=== PATIENT | male | born 1960 | race Caucasian/White ===

== ENCOUNTER 2023-12-13 13:40 | Day surgery (SDC) | payer BC ==
[~2023-12-13] VITALS: Ht 185.4 cm; Wt 100.9 kg
[2023-12-13] VITALS (7 sets, daily range): BP systolic 101–138; BP diastolic 66–86; PULSE 63–67; TEMP 97.5–98.4
[~2023-12-13 13:40] MED LIST: FASTIN30 MG PO; LR 1,000 ML IV SCH; Meclizine 25 MG TAB PO SCH; PRIL40 PO
[2023-12-13] MEDS ORDERED: RT ADVAIR 228 DISKUS IH (14:38)
[2023-12-13] MEDS ORDERED: Lidocaine PF 2% (20 MG/ML) 5 ML VIAL ONE (14:43)
[2023-12-13] MEDS ORDERED: fentaNYL 50 MCG/ML 5 ML VIAL ONE (14:44)
[2023-12-13] MEDS ORDERED: Rocuronium 50 MG/5 ML Multi-Dose VIAL ONE (14:44)
[2023-12-13] MEDS ORDERED: Ondansetron 4 MG/2 ML VIAL ONE (14:45)
[2023-12-13] MEDS ORDERED: Meperidine 50 MG/ML 1 ML VIAL IV PRN (14:45)
[2023-12-13] MEDS ORDERED: hydrALAZINE 20 MG/ML 1 ML VIAL IV PRN (14:45)
[2023-12-13] MEDS ORDERED: Ondansetron 4 MG/2 ML VIAL IV PRN (14:45)
[2023-12-13] MEDS ORDERED: fentaNYL 50 MCG/ML 1 ML SYRINGE/VIAL [PACU/SDC ONLY] IV PRN (14:45)
[2023-12-13] MEDS ORDERED: dexAMETHasone 10 MG/ML VIAL ONE (14:45)
[2023-12-13] MEDS ORDERED: HYDROmorphone 1 MG/1 ML SYRINGE [PACU/SDC ONLY] IV PRN (14:45)
[2023-12-13] MEDS ORDERED: NORCO 325 MG-51 TAB PO (15:35)
[2023-12-13] MEDS ORDERED: MOTRIN 600600 MG/TAB PO (15:35)
[2023-12-13] MEDS ORDERED: COLACE 100100 MG/CAP PO (15:36)
[2023-12-13] MEDS ORDERED: Topical Skin Adhesive 1 EACH (1 ML) TOP ONE (16:00)
[2023-12-13] MEDS ORDERED: Ketorolac 30 MG/ML VIAL ONE (16:36)
--- NOTE | 2023-12-13 17:40 | NUR ---
pt transferred to room from pacu, at bedside. pt a&ox4. denies pain. x3 lap sites are cdi. fluids infusing into left wrist IV. pt tolerating PO intake. pt ready for discharge.
--- NOTE | 2023-12-13 19:13 | NUR ---
DISCHARGE INSTRUCTIONS GIVEN TO PT AND , ALL QUESTIONS ANSWERED. PT ESCORTED TO PERSONAL VEHICLE BY WHEELCHAIR.
== END 2023-12-13 19:14 | disposition home or self-care (01) ==
LOC: SDCO 13:40 → SURG 17:40 → SDCO 19:14
DX: K40.90 Unilateral inguinal hernia, without obstruction or gangrene, not specified as recurrent (principal); D17.6 Benign lipomatous neoplasm of spermatic cord
CPT/HCPCS: OP; C1781; J0690; J1100; J1885; J2405; J2704; J3010; J7120